=== PATIENT | female | born 1945 | race Caucasian/White ===

== ENCOUNTER 2021-02-13 07:58 | Emergency (ER) | payer MEDICARE ==
[~2021-02-13 07:58] MED LIST: FIORICET1 EACH PO
[2021-02-13 08:49] LABS: BASOPHIL 0.7 % (0-2); HCT 40.3 % (37.0-47.0); HGB 13.7 g/dl (12.5-16.0); LYMPHOCYTE 18.3 % (15-48); MCH 30.3 pg (25.0-31.0); MCV 89.2 fL (78.0-100.0); MONOCYTE 5.3 % (0-12); MPV 11.2 fL (6.0-9.5); NEUTROPHIL 74.4 % (41-80); NRBC 0; PLT 207 K/uL (150-400); RBC 4.52 M/uL (4.20-5.40); RDW 12.9 % (11.5-14.0)
[2021-02-13 08:59] LABS: ALBUMIN 3.8 g/dL (3.4-5.0); BILIRUBIN - TOTAL 0.5 mg/dL (0.2-1.0); BUN/CREAT RATIO (CALC) 20.4 RATIO; CREATININE 0.54 mg/dL (0.51-0.95); POTASSIUM 3.8 mmol/L (3.5-5.1); TOTAL PROTEIN 6.8 g/dL (6.4-8.2)
[2021-02-13 09:35] LABS: BILIRUBIN NEGATIVE (NEGATIVE); BLOOD NEGATIVE Ery/uL (NEGATIVE); CLARITY CLEAR (CLEAR); COLOR YELLOW (YELLOW); GLUCOSE (U) NORMAL (NORMAL); LEUKOCYTES NEGATIVE Leu/uL (NEGATIVE); NITRITE NEGATIVE (NEGATIVE); PROTEIN NEGATIVE (NEGATIVE); SPECIFIC GRAVITY 1.015 (1.001-1.030); UROBILINOGEN 0.2 mg/dL (0.2-1.0)
[2021-02-13] MEDS ORDERED: ANTIVERT25 MG PO (10:16)
== END 2021-02-13 10:38 | disposition home or self-care (01) ==
LOC: FER 07:58
PROVIDERS: Emergency Medicine
DX: R42 Dizziness and giddiness (principal); Z88.5 Allergy status to narcotic agent
CPT/HCPCS: 36415; 70450; 80053; 81003; 85025; 93005

== ENCOUNTER 2022-05-31 05:10 | Emergency (ER) | payer MEDICARE ==
[~2022-05-31 05:10] MED LIST changes: +ANTIVERT25 MG PO
[2022-05-31 06:22] LABS: BASOPHIL 0.8 % (0-2); EOSINOPHIL 3.8 % (0-7); HCT 37.5 % (37.0-47.0); HGB 12.2 g/dl (12.5-16.0); LYMPHOCYTE 42.8 % (15-48); MCH 29.6 pg (25.0-31.0); MCHC 32.5 g/dL (32.0-36.0); MONOCYTE 10.3 % (0-12); MPV 11.2 fL (6.0-9.5); NEUTROPHIL 42.1 % (41-80); NRBC 0; PLT 170 K/uL (150-400); RBC 4.12 M/uL (4.20-5.40); RDW 13.5 % (11.5-14.0); WBC 4.8 K/uL (4.0-10.5)
[2022-05-31 06:50] LABS: ALBUMIN 3.5 g/dL (3.4-5.0); BILIRUBIN - TOTAL 0.6 mg/dL (0.2-1.0); BUN/CREAT RATIO (CALC) 20.5 RATIO; CREATININE 0.73 mg/dL (0.51-0.95); GLOBULIN (CALCULATION) 2.6 g/dL; POTASSIUM 3.9 mmol/L (3.5-5.1); TOTAL PROTEIN 6.1 g/dL (6.4-8.2)
[2022-05-31 07:07] LABS: INFLUENZA A NAA NEGATIVE (NEGATIVE)
[2022-05-31 07:42] LABS: CORONAVIRUS 2019 SARS-COV-2 POSITIVE (NEGATIVE)
[2022-05-31] MEDS ORDERED: PAXLOVID CO-PA1 EAC1 PO (07:51)
[2022-05-31] MEDS ORDERED: MEDROL 4MG DOSEP4 MG PO (07:51)
== END 2022-05-31 09:15 | disposition home or self-care (01) ==
LOC: FER 05:10
PROVIDERS: Emergency Medicine
DX: R42 Dizziness and giddiness (principal); U07.1 COVID-19; Z88.5 Allergy status to narcotic agent
CPT/HCPCS: 36415; 80053; 85025; C9113; J2270; J2405; J7030; U0002